=== PATIENT | female | born 1935 | race Caucasian/White ===

== ENCOUNTER 2020-10-01 07:45 | Outpatient (CLI) | payer MEDICARE, SELFPAY ==
--- NOTE | ~2020-10-01 | DEXA_ITS ---
Bone Density Report Name: Keisha Osborne Age: 85 Sex: Female Ethnicity: White Date of : 1935 Indication: osteopenia; height loss; prior fracture; postmenopausal Referring Provider: Matteo, Elba Velez Study: Bone densitometry was performed. Exam Date: October 01, 2020 Accession number: [id number] Bone Density: Region BMD T-score Z-score Classification AP Spine (L1, L2, L3) 0.951 -0.6 2.1 Normal Femoral Neck (Left) 0.465 -3.5 -1.0 Osteoporosis Total Hip (Left) 0.761 -1.5 0.7 Osteopenia Total Hip Bilateral Avg 0.763 -1.5 0.8 Osteopenia Femoral Neck (Right) 0.621 -2.1 0.4 Osteopenia Total Hip (Right) 0.764 -1.5 0.8 Osteopenia World Health Organization criteria for BMD impression classify patients as: Normal (T-score at or above -1.0), Osteopenia (T-score between -1.0 and -2.5), or Osteoporosis (T-score at or below -2.5). 10-year Fracture Risk: FRAX not reported because: Some T-score for Spine Total or Hip Total or Femoral Neck at or below -2.5 Prior hip or vertebral fracture Previous Exams: Region Exam Age BMD T-score BMD Change BMD Change Date g/cm2 vs Baseline vs Previous AP Spine(L1, L2, L3) 10/01/2020 85 0.951 -0.6 0.090(10.4%)# 0.008(0.8%) 08/16/2018 83 0.943 -0.7 0.082(9.5%)# 0.087(10.2%)* 06/20/2016 80 0.856 -1.5 -0.005(-0.6%)# -0.014(-1.6%)# 11/15/2011 76 0.869 -1.4 0.009(1.0%)# 0.009(1.0%)# 04/03/2002 66 0.861 -1.4 Total Hip(Left) 10/01/2020 85 0.761 -1.5 -0.138(-15.4%) 0.048(6.7%)* 08/16/2018 83 0.713 -1.9 -0.186(-20.7%) 0.003(0.5%) 06/20/2016 80 0.710 -1.9 -0.189(-21.1%) -0.033(-4.4%)# 11/15/2011 76 0.742 -1.6 -0.157(-17.4%) -0.157(-17.4%) 04/03/2002 66 0.899 -0.4 Total Hip(Right) 10/01/2020 85 0.764 -1.5 -0.173(-18.5%) -0.027(-3.4%)* 08/16/2018 83 0.791 -1.2 -0.146(-15.6%) 0.080(11.2%)# 06/20/2016 80 0.711 -1.9 -0.225(-24.1%) -0.026(-3.6%)# 11/15/2011 76 0.737 -1.7 -0.199(-21.3%) -0.199(-21.3%) 04/03/2002 66 0.936 0.0 *Denotes significance at 95% confidence level, LSC for AP Spine = 0.022 g/cm2, LSC for Total Hip = 0.027 g/cm2 Clinical Information Provided by Patient: Have had a previous hip or vertebral fracture Has had a low trauma fracture Has used the following medications: Vitamin D, Calcium Patient maximum height was 62 Menopause Age: 55 No regular weight bearing exercise Onset of menses at age 15 Number of children 2
--- NOTE | ~2020-10-01 | MM_ITS ---
EXAMINATION: MM screening raul BI w pati HISTORY: Screening mammogram TECHNIQUE: Craniocaudal and mediolateral oblique 3-D tomosynthesis images were obtained and synthetic 2-D images were generated. CAD analysis was submitted and interpreted. COMPARISON: 01/16/2018, 06/20/2016, 05/17/2010 BREAST PARENCHYMAL COMPOSITION: There are scattered areas of fibroglandular density. FINDINGS: Scattered benign-appearing calcifications are present. There is no evidence of suspicious m ass, calcification, or architectural distortion to suggest malignancy in either breast. There has bee n no suspicious interval change. IMPRESSION: 1. No mammographic evidence of malignancy. 2. Recommend routine screening mammography while the patient remains in good health. BI-RADS Category 2: Benign finding(s). Reviewed, dictated and finalized at location A. IMPRESSION: 1. No mammographic evidence of malignancy. 2. Recommend routine screening mammography while the patient remains in good he alth. BI-RADS Category 2: Benign finding(s).
== END 2020-10-01 07:46 | disposition home or self-care (01) ==
LOC: ANHIMG 07:54
PROVIDERS: PCP Nurse Practitioner Family; Visit Provider Nurse Practitioner Family
DX: Z12.31 Encounter for screening mammogram for malignant neoplasm of breast (principal); Z78.0 Asymptomatic menopausal state; M85.89 Other specified disorders of bone density and structure, multiple sites; M81.0 Age-related osteoporosis without current pathological fracture
CPT/HCPCS: 77063; 77067; 77080

== ENCOUNTER 2020-11-12 10:02 | Emergency (ER) | payer MEDICARE, SELFPAY ==
[2020-11-12 10:15] VITALS: BP 152/63; PULSE 84; RESP 18; TEMP 36.6; O2SAT 96
--- NOTE | 2020-11-12 10:45 | ED.SKABFB ---
HPI - Skin/Abscess/Foreign Bdy General Chief complaint: Skin/Abscess/Foreign Body Stated complaint: Spider Bite Source: patient Mode of arrival: ambulatory Limitations: no limitations History of Present Illness HPI narrative: Patient is an 85-year-old female who presents with an insect sting to her neck and left AC area x6 days. She reports feeling a sharp bite and seeing an unidentifiable insect. Patient has an area of warmth and redness to left neck with surrounding rash as well as an area of redness and warmth to left AC. Patient reports pruritic in both areas. Patient reports trying Benadryl with limited relief. She denies all other complaints at this time. MD complaint: rash and insect bite/sting Related Data Home Medications Medication Instructions Recorded Confirmed alendronate mg PO 11/12/20 aspirin [Adult Aspirin] 81 mg PO DAILY 11/12/20 11/12/20 atorvastatin 10 mg PO DAILY 11/12/20 11/12/20 cetirizine 10 mg PO DAILY 11/12/20 11/12/20 cholecalciferol (vitamin D3) 25 mcg PO DAILY 11/12/20 11/12/20 [Vitamin D3] losartan 25 mg PO DAILY 11/12/20 11/12/20 montelukast 10 mg PO DAILY 11/12/20 11/12/20 Allergies Allergy/AdvReac Type Severity Reaction Status Date / Time shellfish derived Allergy Intermediate vomiting Verified 07/11/18 06:55 Review of Systems Review of Systems: CONSTITUTIONAL: Denies fever, chills, or sweats. EYES: Denies visual changes, redness, or discharge. ENT: Denies rhinorrhea, congestion, sore throat, or otalgia. CARDIOVASCULAR: Denies chest pain, palpitations, or edema. RESPIRATORY: Denies cough or dyspnea. GASTROINTESTINAL: Denies abdominal pain, nausea, vomiting, or diarrhea. GENITOURINARY: Denies dysuria or hematuria. SKIN: Insect sting to left neck and left antecubital area MUSCULOSKELETAL: Denies back pain, joint pain, or myalgia. NEUROLOGIC: Denies headache, numbness, dizziness, or weakness. PSYCHIATRIC: Denies anxiety or depression. [facility] Past Medical History Medical History Bigeminy Cataracts, bilateral HTN (hypertension) Hypercholesterolemia Pneumonia Seasonal allergies Surgical History Surgical History H/O vertebroplasty Hx of tonsillectomy Total knee replacement status Social History Social History (Updated 11/12/20 @ 10:59 by DERRICK Whiteside) Smoking status: Never smoker Alcohol intake: never Substance use: never Comments At the time of signature, I have reviewed and agree with nursing past medical, surgical, social, and family history unless otherwise noted. Please see nursing chart for further information. There is no relevant family history pertinent to the presenting complaint. Exam Narrative: GENERAL: Well-appearing, well-nourished, and in no acute distress. HEAD: Normocephalic, atraumatic. EYES: EOMI. No redness or drainage. Conjunctiva are normal. ENT: Mucous membranes pink and moist. CHEST: No respiratory distress. Clear to auscultation. HEART: Regular rate and rhythm. EXTREMITIES: Normal range of motion. SKIN: Approximate 6 x 3 cm area of erythema and warmth to left neck, small area of erythema and warmth to left AC with surrounding macular rash. NEURO: No focal deficits. Alert and oriented x3. Gait steady. PSYCH: Normal affect. No signs of depression or anxiety. Course Vital Signs Vital signs: Vital Signs Temperature 36.6 C 11/12/20 10:15 Pulse Rate 84 11/12/20 10:15 Respiratory Rate 18 11/12/20 10:15 Blood Pressure 152/63 H 11/12/20 10:15 Pulse Oximetry 96 11/12/20 10:15 Temperature 36.6 C 11/12/20 10:15 Pulse Rate 84 11/12/20 10:15 Respiratory Rate 18 11/12/20 10:15 Blood Pressure 152/63 H 11/12/20 10:15 Pulse Oximetry 96 11/12/20 10:15 Reviewed-patient is informed that they may have pre-hypertension or hypertension based on a blood pressure reading. I recommend the patient call th
== END 2020-11-12 10:55 | disposition home or self-care (01) ==
PROVIDERS: Emergency Provider Nurse Practitioner; PCP Nurse Practitioner Family
DX: L03.221 Cellulitis of neck (principal); S10.96XA Insect bite of unspecified part of neck, initial encounter; W57.XXXA Bitten or stung by nonvenomous insect and other nonvenomous arthropods, initial encounter; H26.9 Unspecified cataract; I10 Essential (primary) hypertension; E78.00 Pure hypercholesterolemia, unspecified; Z96.659 Presence of unspecified artificial knee joint
CPT/HCPCS: 99213; G0463

== ENCOUNTER 2022-01-09 08:33 | Outpatient (CLI) | payer MEDICARE, SELFPAY ==
--- NOTE | ~2022-01-09 | MM_ITS ---
EXAMINATION: MM screening raul BI w pati HISTORY: Screening mammogram TECHNIQUE: Craniocaudal and mediolateral oblique 3-D tomosynthesis images were obtained and synthetic 2-D images were generated. CAD analysis was submitted and interpreted. COMPARISON: 10/01/2020, 01/16/2018, 06/20/2016 BREAST PARENCHYMAL COMPOSITION: The breasts are heterogeneously dense, which may obscure small masses . FINDINGS: Scattered benign-appearing calcifications are present. No suspicious mass, calcification, o r architectural distortion are identified in either breast to suggest malignancy. There has been no s uspicious interval change. IMPRESSION: 1. No mammographic evidence of malignancy. 2. Recommend routine screening mammography while the patient remains in good health. BI-RADS Category 2: Benign finding(s). Reviewed, dictated and finalized at location A. GER CALL IMPRESSION: 1. No mammographic evidence of malignancy. 2. Recommend routine screening mammography while the patient remains in good he alth. BI-RADS Category 2: Benign finding(s).
== END 2022-01-09 08:34 | disposition home or self-care (01) ==
LOC: ANHIMG 08:35
PROVIDERS: PCP Nurse Practitioner Family; Visit Provider Nurse Practitioner Family
DX: Z12.31 Encounter for screening mammogram for malignant neoplasm of breast (principal)
CPT/HCPCS: 77063; 77067

== ENCOUNTER 2022-09-06 13:53 | Emergency (ER) | payer MEDICARE, SELFPAY ==
[2022-09-06 14:15] VITALS: BP 150/60; PULSE 83; RESP 16; TEMP 36.6; O2SAT 96
--- NOTE | 2022-09-06 14:26 | ED.SKABFB ---
HPI - Skin/Abscess/Foreign Bdy General Chief complaint: Skin/Abscess/Foreign Body Stated complaint: facial irritation and swelling Time Seen by Provider: 09/06/22 14:26 Source: patient and RN notes reviewed Mode of arrival: ambulatory Limitations: no limitations History of Present Illness HPI narrative: 87-year-old female presents with concern for itching and swelling to her face. She reports she was cleaning out her garage yesterday when she felt she might have got some bug bites on her cheeks. She reports they have since then becomes swollen, itchy, red. Denies pain. She denies swollen lips, swollen tongue, trouble breathing MD complaint: rash Related Data Home Medications Medication Instructions Recorded Confirmed alendronate 70 mg tablet 70 mg PO DIRECTED 11/12/20 09/06/22 aspirin 81 mg tablet 81 mg PO DAILY 11/12/20 09/06/22 atorvastatin 10 mg tablet 10 mg PO DAILY 11/12/20 09/06/22 cholecalciferol (vitamin D3) 25 25 mcg PO DAILY 11/12/20 09/06/22 mcg (1,000 unit) capsule (Vitamin D3) losartan 25 mg tablet 25 mg PO DAILY 11/12/20 09/06/22 montelukast 10 mg tablet 10 mg PO DAILY 11/12/20 09/06/22 fluticasone propionate 50 50 mcg intranasal DIRECTED 09/06/22 09/06/22 mcg/actuation nasal spray,suspension oxybutynin chloride 5 mg 5 mg PO DIRECTED 09/06/22 09/06/22 tablet,extended release 24 hr Allergies Allergy/AdvReac Type Severity Reaction Status Date / Time shellfish derived Allergy Intermediate vomiting Verified 05/02/22 09:35 Review of Systems Review of Systems: CONSTITUTIONAL: Denies malaise, chills, sweats, or fever. EYES: Denies redness, or discharge. ENT: Denies rhinorrhea, congestion, swollen lips, swollen tongue CARDIOVASCULAR: Denies chest pain, palpitations, or edema. RESPIRATORY: Denies cough or dyspnea. GASTROINTESTINAL: Denies abdominal pain, nausea, vomiting SKIN: Reports itchy rash on her face MUSCULOSKELETAL: Denies joint pain or myalgia. NEUROLOGIC: Denies headache. All systems reviewed & are unremarkable except as noted in HPI and below PMFSH Past Medical History Medical History Bigeminy Cataracts, bilateral HTN (hypertension) Hypercholesterolemia Pneumonia Seasonal allergies Surgical History Surgical History H/O vertebroplasty Hx of tonsillectomy Total knee replacement status Social History Social History Smoking status: Never smoker Alcohol intake: never Substance use: never Lack of Transportation: No Lack of Food: Never True Current Housing: I Have Housing Concerned About Future Housing: No Difficulty Paying Gas/Electric Bills: No Difficulty Paying for Meds: No Currently Unemployed: No Education: High School Diploma/GED Difficulty w/ Childcare or Family Care: No Gender identity (if verbalized by the patient): Female Comments At time of signature, agree with nursing past medical, surgical, social and family history. There is no relevant family history pertinent to the presenting complaint Exam Narrative: GENERAL: Well-appearing, well-nourished, and in no acute distress. HEAD: Normocephalic, atraumatic. EYES: PERRLA, conjunctivae clear, and EOMI. ENT: Mucous membranes moist. Oropharynx without edema, erythema or lesions. NECK: Supple. No lymphadenopathy CHEST: Clear to auscultation. No respiratory distress. HEART: Regular rate and rhythm. SKIN: Warm, dry. bilateral cheeks erythematous without induration, warm, slightly raised NEURO: Alert and oriented x3. PSYCH: Normal mood and affect Course Course Emergency Course: Patient is aware of diagnosis, understands and agrees to treatment plan. Anticipatory guidance given. Patient agrees to follow-up as directed and is aware of reasons to seek care at the emergency department. Portions of this
== END 2022-09-06 14:43 | disposition home or self-care (01) ==
PROVIDERS: Emergency Provider Nurse Practitioner; PCP Nurse Practitioner Family
DX: T78.40XA Allergy, unspecified, initial encounter (principal); H26.9 Unspecified cataract; I10 Essential (primary) hypertension; E78.00 Pure hypercholesterolemia, unspecified; R00.8 Other abnormalities of heart beat; Z79.82 Long term (current) use of aspirin
CPT/HCPCS: 99213; G0463

== ENCOUNTER 2023-03-26 14:14 | Outpatient (CLI) | payer MEDICARE, SELFPAY ==
--- NOTE | ~2023-03-26 | MM_ITS ---
EXAMINATION: MM screening raul BI w pati HISTORY: Screening mammogram TECHNIQUE: Craniocaudal and mediolateral oblique 3-D tomosynthesis images were obtained and synthetic 2-D images were generated. CAD analysis was submitted and interpreted. COMPARISON: 01/09/2022, 10/01/2020, 01/16/2018 BREAST PARENCHYMAL COMPOSITION: The breasts are heterogeneously dense, which may obscure small masses . FINDINGS: Scattered benign-appearing calcifications are present. No suspicious mass, calcification, o r architectural distortion are identified in either breast to suggest malignancy. There has been no s uspicious interval change. IMPRESSION: 1. No mammographic evidence of malignancy. 2. Recommend routine screening mammography while the patient remains in good health. BI-RADS Category 2: Benign finding(s). Reviewed, dictated and finalized at location A. [employer] IMPRESSION: 1. No mammographic evidence of malignancy. 2. Recommend routine screening mammography while the patient remains in good he alth. BI-RADS Category 2: Benign finding(s).
== END 2023-03-26 14:15 | disposition home or self-care (01) ==
LOC: ANHIMG 14:17
PROVIDERS: PCP Nurse Practitioner Family; Visit Provider Nurse Practitioner Family
DX: Z12.31 Encounter for screening mammogram for malignant neoplasm of breast (principal)
CPT/HCPCS: 77063; 77067

== ENCOUNTER 2023-04-28 09:16 | Emergency (ER) | payer MEDICARE, SELFPAY ==
--- NOTE | ~2023-04-28 | XR_ITS ---
EXAMINATION: XR chest 2V DATE: 04/28/2023 10:11 INDICATION: Cough and congestion TECHNIQUE: PA and lateral views of the chest were obtained. COMPARISON: Chest radiograph dated 05/07/17 FINDINGS: No interval change in a bandlike discoid atelectasis/scarring at the bilateral lower lung zones. No n ew airspace opacities, pulmonary edema, pleural effusion or pneumothorax. Heart size is normal. A few chronic thoracic compression fractures with vertebroplasty at what is likely T11. IMPRESSION: 1. 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 No acute ca rdiopulmonary disease. Reviewed, dictated and finalized at location A. IMPRESSION: 1. Stable appearance of chronic discoid atelectasis/scarring at the bilateral l boy bases. No acute cardiopulmonary disease.
--- NOTE | 2023-04-28 09:18 | ED.URI ---
HPI - URI/Sore Throat General Chief Complaint: Upper Respiratory Infection Stated Complaint: Congestion,Bilateral Ear Irritation, cough Time Seen by Provider: 04/28/23 09:35 Source: patient Mode of arrival: ambulatory Limitations: no limitations History of Present Illness HPI Narrative: Keisha is an 87-year-old female patient presenting to the clinic today with complaints of cough, congestion, and bilateral ear pain x1 day. She reports no known fever or chills. States her symptoms just started yesterday. Feel as though her ears are clogging up. She denies any shortness of breath or chest pain MD elicited complaint: cough and nasal congestion Related Data Home Medications Medication Instructions Recorded Confirmed alendronate 70 mg tablet 70 mg PO DIRECTED 11/12/20 11/01/22 aspirin 81 mg tablet 81 mg PO DAILY 11/12/20 11/01/22 atorvastatin 10 mg tablet 10 mg PO DAILY 11/12/20 11/01/22 losartan 25 mg tablet 25 mg PO DAILY 11/12/20 11/01/22 montelukast 10 mg tablet 10 mg PO DAILY 11/12/20 11/01/22 fluticasone propionate 50 50 mcg intranasal DIRECTED 09/06/22 11/01/22 mcg/actuation nasal spray,suspension oxybutynin chloride 5 mg 5 mg PO DIRECTED 09/06/22 11/01/22 tablet,extended release 24 hr multivit with minerals-iron 18 tablet PO 04/28/23 mg-folic ac 400 mcg-vit K 25 mcg tablet (Adults Multivitamin) Allergies Allergy/AdvReac Type Severity Reaction Status Date / Time shellfish derived AdvReac Intermediate vomiting Verified 04/28/23 09:32 Review of Systems Review of Systems: Pertinent positives per HPI. Patient denies any fever, chills, rash, headache, visual changes, dizziness, shortness of breath, chest pain, palpitations, nausea, vomiting, diarrhea, constipation, abdominal pain, or any urinary issues. [facility] Past Medical History Medical History Bigeminy Cataracts, bilateral HTN (hypertension) Hypercholesterolemia Pneumonia Seasonal allergies Surgical History Surgical History H/O vertebroplasty Hx of tonsillectomy Total knee replacement status Social History Social History Smoking status: Never smoker Alcohol intake: never Substance use: never Lack of Transportation: No Lack of Food: Never True Current Housing: I Have Housing Concerned About Future Housing: No Difficulty Paying Gas/Electric Bills: No Difficulty Paying for Meds: No Currently Unemployed: No Education: High School Diploma/GED Difficulty w/ Childcare or Family Care: No Gender identity (if verbalized by the patient): Female Comments At the time of my signature, I reviewed and agree with the nursing past medical, surgical, social, and family history. There is no relevant family history pertinent to the patient complaint. Exam Narrative: General: Well-developed, well nourished, in no apparent distress Head: Normocephalic, atraumatic Eyes: Pupils equally round and reactive to light bilaterally, EOM intact, sclera and conjunctive clear, no discharge, lids normal Ears: TMs intact and congested, ear canals clear, no drainage, grossly hearing normal. Nose: Nares patent, clear nasal discharge, no inflammation, no sinus tenderness. Mouth: Oral pharynx without lesions or masses, good dentition, MMM. Neck: Supple, trachea midline, no enlargement of anterior or posterior cervical nodes, no thyroid masses or goiter palpable. Cardio: Regular rate and rhythm, s1 and s2 normal, no murmur appreciated. Resp: Lung sounds congested with crackles in the bases, no wheezing or rubs Course Course Emergency Course: Portions of this record may have been created with voice recognition software. Level of Care: Express Care Visit Vital Signs Vital signs: Vital signs reviewed MDM - URI/Sore Throat MDM Narrative Medi
[2023-04-28 09:25] VITALS: BP 150/68; PULSE 87; RESP 18; TEMP 36.6; O2SAT 94
== END 2023-04-28 10:27 | disposition home or self-care (01) ==
PROVIDERS: Emergency Provider Nurse Practitioner Family; PCP Nurse Practitioner Family
DX: J06.9 Acute upper respiratory infection, unspecified (principal); I10 Essential (primary) hypertension; Z20.822 Contact with and (suspected) exposure to COVID-19
CPT/HCPCS: 71046; 87426; 99213; G0463

== ENCOUNTER 2023-10-06 09:43 | Outpatient (CLI) | payer MEDICARE, SELFPAY ==
--- NOTE | ~2023-10-06 | DEXA_ITS ---
Bone Density Report Name: NEEL VAZQUEZ Age: 88 Sex: Female Ethnicity: White Date of : 1935 Indication: osteopenia; height loss; prior fracture; Referring Provider: PAOLO HERMOSILLO Study: Bone densitometry was performed. Exam Date: October 06, 2023 Accession number: [id number] Bone Density: Region BMD T-score Z-score Classification AP Spine(L1, L2, L3) 0.970 -0.4 2.4 Normal Femoral Neck (Left) 0.499 -3.2 -0.6 Osteoporosis Total Hip (Left) 0.765 -1.5 0.9 Osteopenia Femoral Neck (Right) 0.619 -2.1 0.4 Osteopenia Total Hip (Right) 0.846 -0.8 1.5 Normal Total Hip Mean 0.805 -1.2 1.2 Osteopenia World Health Organization criteria for BMD impression classify patients as: Normal (T-score at or above -1.0), Osteopenia (T-score between -1.0 and -2.5), or Osteoporosis (T-score at or below -2.5). 10-year Fracture Risk: FRAX not reported because: Some T-score for Spine Total or Hip Total or Femoral Neck at or below -2.5 Prior hip or vertebral fracture Previous Exams: Region Exam Age BMD T-score BMD Change BMD Change Date g/cm2 vs Baseline vs Previous AP Spine (L1-L3) 10/06/2023 88 0.970 -0.4 0.114 (13.3%)* 0.019 (2.0%) 10/01/2020 85 0.951 -0.6 0.095 (11.1%)* 0.008 (0.8%) 08/16/2018 83 0.943 -0.7 0.087 (10.2%)* 0.087 (10.2%)* 06/20/2016 80 0.856 -1.5 Total Hip(Left) 10/06/2023 88 0.765 -1.5 0.055 (7.8%)* 0.004 (0.5%) 10/01/2020 85 0.761 -1.5 0.051 (7.2%)* 0.048 (6.7%)* 08/16/2018 83 0.713 -1.9 0.003 (0.5%) 0.003 (0.5%) 06/20/2016 80 0.710 -1.9 Total Hip(Right) 10/06/2023 88 0.846 -0.8 0.135 (18.9%)* 0.082 (10.8%)# 10/01/2020 85 0.764 -1.5 0.052 (7.4%)# -0.027 (-3.4%) 08/16/2018 83 0.791 -1.2 0.080 (11.2%)# 0.080 (11.2%)# 06/20/2016 80 0.711 -1.9 *Denotes significance at 95% confidence level, LSC for AP Spine = 0.022 g/cm2, LSC for Total Hip = 0.027 g/cm2 # Denotes dissimilar scan types or analysis methods Clinical Information Provided by Patient: Have had a previous hip or vertebral fracture Has had a low trauma fracture Has used the following medications: Vitamin D, multiviytam,in Patient maximum height was 62 Menopause Age: 55 No regular weight bearing exercise Drinks caffeinated beverages Onset of menses at age 17 Number of children 2 Impression: The patient has established osteoporosis, based on the Left Femoral Neck T-score and the existence of a pr
== END 2023-10-06 09:44 | disposition home or self-care (01) ==
LOC: ANHIMG 09:44
PROVIDERS: PCP Nurse Practitioner Family; Visit Provider Nurse Practitioner Family
DX: M81.0 Age-related osteoporosis without current pathological fracture (principal); M85.852 Other specified disorders of bone density and structure, left thigh; M85.851 Other specified disorders of bone density and structure, right thigh
CPT/HCPCS: 77080

== ENCOUNTER 2024-10-30 10:02 | Emergency (ER) | payer MEDICARE, SELFPAY ==
--- NOTE | ~2024-10-30 | XR_ITS ---
EXAMINATION: XR chest 2V, 10/30/2024 10:53 CDT HISTORY: rales on expiration COMPARISON: No comparisons available. Technique: 2 views obtained. Findings: Small basilar infiltrates and basilar areas of atelectasis, findings most marked in the right lower lobe. COPD changes are noted. No pneumothorax. Heart is normal size. Mediastinal and hilar contours are within normal limits. Kyphoplasty changes noted. Impression: Early bilateral pneumonia Reviewed, dictated and finalized at location A. Impression: Early bilateral pneumonia
[2024-10-30 10:17] VITALS: BP 160/68; PULSE 68; RESP 18; TEMP 36.4; O2SAT 98
--- NOTE | 2024-10-30 10:30 | ED_ITS ---
HPI - Dizziness General Chief Complaint: Dizziness Stated Complaint: Dizziness Time Seen by Provider: 10/30/24 10:30 Source: patient Mode of arrival: ambulatory Limitations: no limitations History of Present Illness HPI Narrative: 89 yo F presents with c/o dizziness when standing. Lasts a few seconds and is better after taking a few steps. Started this AM. Was laying in bed and noticed dizziness. Was able to get up out of bed and use the bathroom, fed her cats and then drank a carnation breakfast drink and orange juice. After eating did not help with dizziness called her doctor for appt and was told to come here. No URI symptoms. NO CP or SOB. Currently not dizzy sitting in exam room. Ambulatory with steady gait. Pt states about a week ago she had her prescription sent to a new pharmacy and instead of taking 2 losartan, she is only taking 1 pill a day. Did not call her PCP about medication change. All systems reviewed and negative except as noted above. Related Data Home Medications ?Medication ?Instructions ?Recorded ?Confirmed ?Last Taken ?Type aspirin 81 mg tablet 81 mg PO DAILY 11/12/2005/14 Unknown History multivit with minerals-iron 18 tablet PO 04/28/2305/14 Unknown History mg-folic ac 400 mcg-vit K 25 mcg tablet (Adults Multivitamin) cholecalciferol (vitamin D3) 25 25 mcg PO DAILY 06/02/24 Unknown History mcg (1,000 unit) capsule Allergies Allergy/AdvReac Type Severity Reaction Status Date / Time shellfish derived AdvReac Intermediate vomiting Verified 10/30/24 10:22 [facility] Past Medical History Medical History Osteoporosis Overactive bladder Chronic kidney disease, stage 3b Pneumonia HTN (hypertension) Hypercholesterolemia Bigeminy Seasonal allergies Cataracts, bilateral Surgical History Surgical History H/O vertebroplasty Total knee replacement status Hx of tonsillectomy Social History Social History Social History: 05/20/24 very confident with medical forms Smoking status: Never smoker Alcohol intake: never Substance use: never Do You Feel Safe in your Home?: Yes Lack of Transportation: No Lack of Food: Never True Current Housing: I Have Housing Concerned About Future Housing: No Difficulty Paying Gas/Electric Bills: No Difficulty Paying for Meds: No Currently Unemployed: No Education: High School Diploma/GED Difficulty w/ Childcare or Family Care: No Living arrangements: alone Additional living arrangements comments: Occupation/Education: retired Gender identity (if verbalized by the patient): Female Spiritual care concerns: No Agree to blood products: Yes Comments At time of signature, agree with nursing past medical, surgical, social and family history. There is no relevant family history pertinent to the presenting complaint. Exam Narrative: GENERAL: This is a well-nourished, well-developed patient, in no apparent distress. HEAD: normocephalic, atraumatic. EYES: PERRL. Sclera clear/white. Vision is grossly intact. extraocular motions intact EARS: External ears normal, auditory canals clear and without drainage, TMs normal without perforation. Hearing grossly intact. NOSE: External nose normal with no obvious nasal discharge, nares without redness, no rhinorrhea. THROAT: Mucous membranes moist, posterior pharynx clear. NECK: Neck supple, non-tender without lymphadenopathy, masses or thyromegaly. CARDIOVASCULAR: Regular rate and rhythm without murmurs, gallops, or rubs. RESPIRATORY: Crackles and rales to bilateral lower lung delaney. Breath sounds equal bilaterally. No wheezes, rales, or rhonchi. SKIN: warm, Dry, intact with no suspicious lesions or rash, good texture and turgor. NEURO: awake, alert, and oriented to person, place and time. There were no obvious focal neurologic abnormalities. no facial droop. No arm drift. EXTREMITIES: No joint tenderness, effusion, or edema noted. Course Course Level of Care: Express Care Visit Vital Signs Vital signs: Vital Signs Temperature 36.4 C L 10/30/24 10:17 Pulse Rate 68 10/30/24 10:17 Respiratory Rate 18 10/30/24 10:17 Blood Pressure 160/68 H 10/30/24 10:17 Pulse Oximetry 98 10/30/24 10:17 Oxygen Delivery Room Air 10/30/24 10:17 Temperature 36.4 C L 10/30/24 10:17 Pulse Rate 70 10/30/24 10:52 Respiratory Rate 18 10/30/24 10:17 Blood Pressure 146/70 H 10/30/24 10:52 Pulse Oximetry 98 10/30/24 10:17 Oxygen Delivery Room Air 10/30/24 10:17 Reviewed MDM - Dizziness MDM Narrative Medical decision making narrative: chest x-ray shows bilateral early pneumonia. Will treat patient with Augmentin and azithromycin. Vital signs stable. Okay for outpatient therapy. Did offer to transfer patient to ER for further evaluation with labs but she did not feel was necessary. Did recommend the patient discuss medication change with her primary care physician. Called office and has appointment for her tomorrow. Patient is well-appearing, nontoxic. No shortness of breath or chest pain. Will go to the ER for any worsening of symptoms. Differential Diagnosis Differential diagnosis: Likely benign paroxysmal positional vertigo, orthostatic hypotension and other (dehydration) Lab Data Labs: Lab Results 10/30/24 Range/Units 10:45 POC Capillary Glucose 124 H (65-105) mg/dl Discharge Plan Discharge Clinical Impression: Pneumonia Patient Disposition: Home Condition: Stable Instructions: Antibiotic Form, Pneumonia (ED) Additional Instructions: Your chest x-ray showed bilateral pneumonia. Your blood pressure was elevated today. Take antibiotic as prescribed until gone. Schedule a follow up appointment with your doctor. If you have fever, chest pain, shortness of breath or worsening of your dizziness go to the ER. Patient Language: Honduran Prescriptions: New doxycycline hyclate 100 mg capsule 100 mg PO BID 7 Days Qty: 14 0RF amoxicillin-pot clavulanate 875-125 mg tablet 1 tablet PO Q12H 7 Days Qty: 14 0RF No Action Adult Aspirin 81 mg Tablet 81 mg PO DAILY Adults Multivitamin 18 mg iron-400 mcg-25 mcg Tablet PO cholecalciferol (vitamin D3) 25 mcg (1,000 unit) capsule 25 mcg PO DAILY fluticasone propionate 50 mcg/actuation spray,suspension 50 mcg INTRANASAL BID Qty: 68 1RF Januvia 25 mg tablet 25 mg PO DAILY Qty: 90 1RF oxybutynin chloride 5 mg tablet extended release 24hr 5 mg PO DAILY Qty: 90 3RF montelukast 10 mg tablet 10 mg PO DAILY Qty: 90 3RF atorvastatin 10 mg tablet 10 mg PO QHS Qty: 90 3RF losartan 50 mg tablet 50 mg PO DAILY Qty: 90 1RF Follow-up/Referrals: [place], 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
--- OUTSIDE RECORDS SUMMARY | 2024-10-30 10:38 | XMS_ITS | Clinical Summary ---
Author Organization [facility] Address [address], [facility] [address] [place] [address] Phone Care Team Providers Care Forming Department Supervisor Name Role Phone Elba Felipe HIDE MILL WORKER, JIMBO Primary Care Pro vider Allergies Active Allergy Reactions Criticality Noted Date Comments Shellfish Allergy Nausea,Vomiting High 06/10/2018 Medications losartan (COZAAR) 25 MG Tablet 05/03/2018 Active oxybutynin (DITROPAN-XL) 5 MG TABLET SR 24 HR 02/25/2018 Active montelukast (SINGULAIR) 10 MG Tablet 05/08/2018 Active fluticasone (FLONASE) 50 MCG/ACT Suspension 05/29/2018 Active cetirizine (ZYRTEC ALLERGY) 10 MG Tablet Take 10 mg by mouth daily. Active Multiple Vitamins-Mineral s (MULTIVITAMIN PO) Take by mouth. 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 Gender Identity Not on file Sexual Orientation Not on file 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 Not on file Not on file Not on file Last Filed Vital Signs Vital Sign Reading Time Taken Comments Blood Pressure 140/78 06/10/2018 1:17 PM CDT Pulse 89 06/10/2018 1:17 PM CDT Temperature - - Respiratory Rate - - Oxygen Saturation 94% 06/10/2018 1:17 PM CDT Inhaled Oxygen Concentration - - Weight 63.2 kg (139 lb 6.4 oz) 06/10/2018 1:17 P M CDT Height 152.4 cm (5') 06/10/2018 1:17 PM CDT Body Mass Index 27.22 06/10/2018 1:17 PM CDT Plan of Treatment Health Maintenance Due Date Last Done Comments Hepatitis C Virus (HCV) Screening 1935 TdaP Immunization 1935 Zoster Immunization (2 of 3) 08/17/2010 06/22/2010 Respiratory Syncytial Virus (RSV) Immunization (Adult) (1 - 1-dose 75+ series) 2012 Influenza Immunization (#1) 10/13/202411/14, 12/07/2017, 11/06/2016, Additional history exists SARS-COV-2 Immunization (2024- season) 2024 01/24/2021, 04/23/2020, 03/26/2020 Pneumococcal Immunization (50+ years) Completed 11/06/2016, 02/22/2016, 09/05/2010 Pneumococcal Immunization Combined Discontinued 11/06/2016, 02/22/2016, 09/05/2010 Hepatitis B Immunization Aged Out No longer eligible based on patient's age to complete this topic Human Papillomavirus (HPV) Immunization Aged Out No longer eligible based on patient's age to complete this topic Meningococcal Immunization (ACWY) Aged Out No longer eligible based on patient's age to complete this topic Rotavirus Immunization Aged Out No lo nger eligible based on patient's age to complete this topic Insurance MEDICARE [facility] Care Teams Forming Department Supervisor Relationship Specialty Start Date End Date Elba Felipe APRN, LEATHER ROLLER [address] [place] [address] PCP - General Certified Nurse Practitioner 04/10/18
--- OUTSIDE RECORDS SUMMARY | 2024-10-30 10:38 | XMS_ITS | Encounter Summary ---
Author Organization [facility] Address [address] [place] [address] Care Team Providers Care Area Coordinator Name Role Phone Sofia Osorio MD Primary Care Provider [phone] Encounter Details Date Type Department Care Team (Late st Contact Info) Description 08/22/2024 Lab Requisition [facility] - DermPath Lab [address] [place] [phone] Kin Muñoz MD [address] [place] [address] Social History Tobacco Use Types Packs/Day Years Used Date Smoking Tobacco: Never Smokeless Tobacco: Never Alcohol Use Standard Drinks/Week Comments No 0 (1 standard drink = 0.6 oz pur e alcohol) Comments Unknown Sex and Gender Information Value Date Recorded Sex Assigned at Not on file 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 Gender Identity Not on file Sexual Orientation Not on file documented as of this encounter Plan of Treatment Not on file documented as of this encounter Procedures Procedure Name Priority Date/Time Associated Diagnosis Comments DERMATOPATHOLOGY Routine 08/21/2024 12:0 0 AM CDT documented in this encounter Results * DERMATOPATHOLOGY (08/21/2024 12:00 AM CDT) Case Report Dermatopathology Report Case: [id number] Authorizing Provider: Kin Muñoz MD Collected: 08/21/2024 12:00 AM Ordering Location: [facility] - Received: 08/22/2024 08:02 AM DermPath Lab Pathologist: Edna Romo MD Specimen: Skin, right upper forehead 2:15 PM CDT DERMATOPATHOLOGY LABORATORY Final Diagnosis Specimen A. SKIN, right upper forehead: BASAL CELL CARCINOMA (C44.319) PRESENT AT MARGIN DERMAL SCAR (L90.5) PRESENT AT MARGIN 2:15 PM CDT DERMATOPATHOLOGY LABORATORY at 1415 CDT Clinical History Bx Proven BCC Prior biopsy [id number] 2:15 PM CDT DERMATOPATHOLOGY LABORATORY Gross Description Specimen A: Received is one formalin filled container labeled with the patient's name and designated right upper forehead. The specimen consists of a curettage 2 pieces 9x4x1,5x3x1 mm. Jar 0. 2:15 PM CDT DERMATOPATHOLOGY LABORATORY Microscopic Description Specimen A. SKIN, right upper forehead: Within the dermis there are aggregates of basaloid cells with a high nuclear to cytoplasmic ratio and peripheral palisading. There are fibroblasts and collagen bundles oriented parallel to the skin surface with elongated blood vessels, some of which are oriented perpendicular to the skin surface. Both the basal cell carcinoma and the scar are present at the margin of the specimen. 2:15 PM CDT DERMATOPATHOLOGY LABORATORY Disclaimer An external and internal positive and negative controls are appropriate for the histochemical, immunohistochemical and immunofluorescence stain(s) in this case (if any), except where stated explicitly. The performance characteristics of the stain(s) cited in this report were developed and its performance characteristic determined by the Dermatopathology Laboratory at [facility], directed by Dr. Hilario Bey. These tests need not be, and therefore are not, approved by the [place] Food and Drug Administration. The tests are used for clinical purposes. Billing Codes Specimen Charges Stain Charges 45660 1 2:15 PM CDT DERMATOPATHOLOGY LABORATORY Embedded Images 2:15 PM CDT DERMATOPATHOLOGY LABORATORY Pathology/Cytolog y TISSUE SPECIMEN FROM SKIN / Unknown 08/21/2024 08/22/2024 8:02 AM CDT Kin Muñoz MD LAB - PATHOLOGY/CYTOLOGY ORDERAB LES Final Result DERMATOPATHOLOGY LABORATORY [facility] - Department of Dermatology [facility] [address] [place] [address], [address] [phone] documented in this encounter Visit Diagnoses Not on filedocumented in this encounter Care Teams Area Coordinator Relationship Specialty Start Date End Date Sofia Osorio MD [address] [place] [phone] PCP - General 08/08/12 documented as of this encounter
--- OUTSIDE RECORDS SUMMARY | 2024-10-30 10:38 | XMS_ITS | Clinical Summary ---
Author Organization [facility] Address [address] [facility] [place] [address] Care Team Providers Care Freight Car Inspector Name Role Phone Sofia Osorio MD Primary Care Provider [phone] Source Comments [facility],non-owned Affiliates and Associated Physician Practices is amultiple site organization consisting of ambulatory clinics and hospital sitesin [place], [place], [place] and [place]. This disclosure is being madepursuant to the Care Everywhere program and may not contain all information available regarding this patient. Last updated 17.[facility] Active Problems Problem Noted Date Diagnosed Date Stable burst fracture of t11 -T12 vertebra, initial encounter for closed fracture 08/09/2012 Encounters Date Type Department Care Team Description 08/22/2024 Lab Requisition [facility] - DermPath Lab [facility] [place] [address] Kin Muñoz MD 08/08/2024 Lab Requisition [facility] - DermPath Lab [facility] [place] [address] Kin Muñoz MD from Last 3 Months Social History Tobacco Use Types Packs/Day Years Used Date Smoking Tobacco: Never Smokeless Tobacco: Never Alcohol Use Standard Drinks/Week Comments No 0 (1 standard drink = 0.6 oz pur e alcohol) Comments Unknown Sex and Gender Information Value Date Recorded Sex Assigned at Not on file 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 Gender Identity Not on file Sexual Orientation Not on file Last Filed Vital Signs Vital Sign Reading Time Taken Comments Blood Pressure 144/82 05/05/2013 10:15 AM CDT Pulse 79 08/09/2012 10:15 AM CDT Temperature 36.4 C (97.6 F) 08/09/2012 10:15 AM CDT Respiratory Rate 18 08/09/2012 10:15 AM CDT Oxygen Saturation 96% 08/09/2012 10:15 AM CDT Inhaled Oxygen Concentration - - Weight 70.3 kg (155 lb) 05/05/2013 10:15 AM CDT Height 154.9 cm (5' 1) 05/05/2013 10:15 AM CDT Body Mass Index 29.29 05/05/2013 10:15 AM CDT Plan of Treatment Health Maintenance Due Date Last Done Comments BONE DENSITY TESTING 1935 DTAP/TDAP/TD VACCINES (1 - Tdap) 1956 PNEUMOCOCCAL VACCINE 50+ (1 of 1 - PCV) 08/03/1987 ZOSTER VACCINE (1 of 2) 08/03/1987 Respiratory Syncytial Virus (RSV) Vaccine Pt: or over 60 yrs (1 - 1-dose 75+ series) 2012 DEPRESSION SCREENING 02/13/2024 MEDICARE AWV CALENDAR YEAR 2024 COVID-19 VACCINE (1 - 2023-2 5 season) 2024 INFLUENZA VACCINE (#1) 2024 HEPATITIS B VACCINE Aged Out No longe r eligible based on patient's age to complete this topic HIB VACCINE Aged Out No longer eligi ble based on patient's age to complete this topic HPV VACCINE Aged Out No longer eligi ble based on patient's age to complete this topic MENINGOCOCCAL (Group B) VACC INE SHARED DECISION-MAKING Aged Out No longer eligibl e based on patient's age to complete this topic MENINGOCOCCAL GROUPS A/C/Y/W VACCINE Aged Out No longer eligible b ased on patient's age to complete this topic Procedures Procedure Name Priority Date/Time Associated Diagnosis Comments DERMATOPATHOLOGY Routine 08/21/2024 12:0 0 AM CDT DERMATOPATHOLOGY Routine 08/06/2024 12:0 0 AM CDT from Last 3 Months Results * DERMATOPATHOLOGY (08/21/2024 12:00 AM CDT) Only the most recent of2 resultswithin the time period is included. Case Report Dermatopathology Report Case: [id number] Authorizing Provider: Kin Muñoz MD Collected: 08/21/2024 12:00 AM Ordering Location: [facility] - Received: 08/22/2024 08:02 AM DermPath Lab Pathologist: Edna Romo MD Specimen: Skin, right upper forehead 2:15 PM CDT DERMATOPATHOLOGY LABORATORY Final Diagnosis Specimen A. SKIN, right upper forehead: BASAL CELL CARCINOMA (C44.319) PRESENT AT MARGIN DERMAL SCAR (L90.5) PRESENT AT MARGIN 2:15 PM CDT DERMATOPATHOLOGY LABORATORY at 1415 CDT Clinical History Bx Proven BCC Prior biopsy [id number] 2:15 PM CDT DERMATOPATHOLOGY LABORATORY Gross Description [...] characteristic determined by the Dermatopathology Laboratory at [facility], directed by Dr. Hilario Bey. These tests need not be, and therefore are not, approved by the [place] Food and Drug Administration. The tests are used for clinical purposes. Billing Codes Specimen Charges Stain Charges [id number] 1 2:15 PM CDT DERMATOPATHOLOGY LABORATORY Embedded Images 07/14/202 5 2:15 PM CDT DERMATOPATHOLOGY LABORATORY Pathology/Cytolog y TISSUE SPECIMEN FROM SKIN / Unknown 08/21/2024 08/22/2024 8:02 AM CDT Kin Muñoz MD LAB - PATHOLOGY/CYTOLOGY ORDERAB LES Final Result DERMATOPATHOLOGY LABORATORY [facility] - Department of Dermatology [address], [address] [phone] from Last 3 Months Insurance MEDICARE [facility] MEDICARE ADV HMO & PPO Care Teams Freight Car Inspector Relationship Specialty Start Date End Date Sofia Osorio MD [address] [place] [phone] PCP - General 08/08/12
--- OUTSIDE RECORDS SUMMARY | 2024-10-30 10:38 | XMS_ITS | Encounter Summary ---
Author Organization [facility] Health Address [address] [place] [address] Care Team Providers Care Hedge Fund Accountant Name Role Phone Sofia Osorio MD Primary Care Provider [phone] Encounter Details Date Type Department Care Team (Late st Contact Info) Description 08/08/2024 Lab Requisition [facility] - DermPath Lab [address] [place] [phone] Kin Muñoz MD [address] [place] [address] Social History Tobacco Use Types Packs/Day Years Used Date Smoking Tobacco: Never Smokeless Tobacco: Never Alcohol Use Standard Drinks/Week Comments No 0 (1 standard drink = 0.6 oz pur e alcohol) Comments Unknown Sex and Gender Information Value Date Recorded Sex Assigned at Not on file 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 Gender Identity Not on file Sexual Orientation Not on file documented as of this encounter Plan of Treatment Not on file documented as of this encounter Procedures Procedure Name Priority Date/Time Associated Diagnosis Comments DERMATOPATHOLOGY Routine 08/06/2024 12:0 0 AM CDT documented in this encounter Results * DERMATOPATHOLOGY (08/06/2024 12:00 AM CDT) Case Report Dermatopathology Report Case: [id number] Authorizing Provider: Kin Muñoz MD Collected: 08/06/2024 12:00 AM Ordering Location: [facility] - Received: 08/08/2024 12:37 PM DermPath Lab Pathologist: Shiela Pisano MD Specimen: Skin, right upper forehead 5:11 PM CDT DERMATOPATHOLOGY LABORATORY Final Diagnosis Specimen A. SKIN, right upper forehead: BASAL CELL CARCINOMA, NODULAR TYPE (C44.319) 5 5:11 PM CDT DERMATOPATHOLOGY LABORATORY at 1711 CDT Clinical History R/O BCC 5:11 PM CDT DERMATOPATHOLOGY LABORATORY Gross Description Specimen A: Received is one formalin filled container labeled with the patient's name and designated right upper forehead. The specimen consists of a shave biopsy measuring 8x5x1 mm. Jar 0. 5:11 PM CDT DERMATOPATHOLOGY LABORATORY Microscopic Description Specimen A. SKIN, right upper forehead: Within the dermis there are aggregates of basaloid cells with a high nuclear to cytoplasmic ratio and peripheral palisading. 5:11 PM CDT DERMATOPATHOLOGY LABORATORY Disclaimer An external and internal positive and negative controls are appropriate for the histochemical, immunohistochemical and immunofluorescence stain(s) in this case (if any), except where stated explicitly. The performance characteristics of the stain(s) cited in this report were developed and its performance characteristic determined by the Dermatopathology Laboratory at [facility], directed by Dr. Hilario Bey. These tests need not be, and therefore are not, approved by the [place] Food and Drug Administration. The tests are used for clinical purposes. Billing Codes Specimen Charges Stain Charges [id number] 1 5:11 PM CDT DERMATOPATHOLOGY LABORATORY Embedded Images 5:11 PM CDT DERMATOPATHOLOGY LABORATORY Pathology/Cytolog y TISSUE SPECIMEN FROM SKIN / Unknown 08/06/2024 08/08/2024 12:37 PM CDT Kin Muñoz MD LAB - PATHOLOGY/CYTOLOGY ORDERAB LES Final Result DERMATOPATHOLOGY LABORATORY [facility] - Department of Dermatology [address] [phone] documented in this encounter Visit Diagnoses Not on filedocumented in this encounter Care Teams Hedge Fund Accountant Relationship Specialty Start Date End Date Sofia Osorio MD [address] [place] [phone] PCP - General 08/08/12 documented as of this encounter
--- OUTSIDE RECORDS SUMMARY | 2024-10-30 10:38 | XMS_ITS | Clinical Summary ---
Author Organization [facility] Elicia alba Address [address] [place] [id number] Phone Care Team Providers Care Byproducts Operator Name Role Phone Elba Felipe NP Primary Care Provider [phone] Allergies Active Allergy Reactions Criticality Noted Date Comments Shellfish Allergy Nausea Only,Other (s ee comments) High 06/10/2018 Shellfish-Derived Products 0 Medications aspirin 81 MG chewable tablet Chew 81 mg 1 (one) time each day. Active losartan (COZAAR) 25 MG tablet Take 25 mg by mouth 1 (one) time each day. Active montelukast (SINGULAIR) 10 MG tablet Take 10 mg by mouth every night. Active Multiple Vitamin (MULTIVITAMIN) capsule Take 1 capsule by mouth 1 (one) time each day. Active Cholecalciferol (VITAMIN D3) 1000 units capsule Take by mouth. Activ e alendronate (FOSAMAX) 70 MG tablet 9 Active fluticasone (FLONASE) 50 MCG/ACT nasal spray fluticasone propionate 50 mcg/actuation nasal spray,suspension 9 Active atorvastatin (LIPITOR) 10 MG tablet daily Active saccharomyces boulardii (FLORASTOR) 250 MG capsule Take 250 mg by mouth 2 (two) times a day Active oxybutynin XL (DITROPAN-XL) 5 MG 24 hr tablet 2 Active Active Problems Problem Noted Date Diagnosed Date Vitamin D deficiency 08/12/2018 Essential hypertension 06/22/2018 Other and unspecified hyperlipidemia 06/22/2018 Stage 3b chronic kidney disease 04/24/2018 Hyperglycemia 04/24/2018 Resolved Problems Problem Noted Date Diagnosed Date Resolved Date Nonspecific abnormal results of function study of kidney 06/22/2018 04/08/2021 Immunizations Immunization Administration Dates Next Due Fluzone High-Dose 11/19/2019 Influenza Split High Dose Pr eservative Free IM 10/29/2020,11/19/2019,11/19/2019,11/15,11/15/2018,11/07/2016,11/07/2016 ,01/12/2016,01/12/2016 Influenza TIV (IM) 12/18/2014, 5,11/18/2013,11/18,10/18/2012,10/18/2012 Influenza, Injectable, Quadrivalent 12/11/2017,1 Moderna Sars-cov-2 Vaccination 01/24/2021,2020,03/26/2020 Pneumococcal Conjugate 13-Valent 017,11/07/2016,09/05/2010,09/05 Pneumococcal Polysaccharide 02/22/2016, 7 Tdap 11/15/2018,11/15/2018 Zoster 06/22/2010,06/22/2010 Family History Medical History Relation Comments Alzheimer's disease Father Relation Status Comments Father Social History Tobacco Use Types Packs/Day Years Used Date Smoking Tobacco: Never Smokeless Tobacco: Never Alcohol Use Standard Drinks/Week Comments No 0 (1 standard drink = 0.6 oz pur e alcohol) AUDIT-C Answer Date Recorded Frequency of Alcohol Consumption Never 06/22/2018 Average Number of Drinks Not on file 019 Frequency of Binge Drinking Not on file 06/12 Comments Unknown Sex and Gender Information Value Date Recorded Sex Assigned at Not on file Legal Sex Female 11:41 AM MDT Gender Identity Not on file Sexual Orientation Not on file Last Filed Vital Signs Vital Sign Reading Time Taken Comments Blood Pressure 132/70 10/31/2021 10:41 AM CDT Pulse 72 10/31/2021 10:41 AM CDT Temperature 36.3 C (97.4 F) 10/31/2021 10:41 AM CDT Respiratory Rate - - Oxygen Saturation - - Inhaled Oxygen Concentration - - Weight 67.6 kg (149 lb) 10/31/2021 10:41 AM CDT Height 152.4 cm (5') 10/31/2021 10:41 AM CDT Body Mass Index 29.1 10/31/2021 10:41 AM CDT Plan of Treatment Health Maintenance Due Date Last Done Comments COVID-19 Vaccine (2024- 6 season) 2024 01/24/2021, 04/23/2020, 03/26/2020 Influenza Vaccine (#1) 2024 5, 12/18/2014, 11/18/2013, Additional history exists Pneumococcal PPSV23/PCV13 65 + Years / Low and Medium Risk Completed 11/07/2016, 11/07/2016, 02/22/2016, Additional history exists Insurance Care Teams Byproducts Operator Relationship Specialty Start Date End Date Elba Felipe NP [address] [phone] PCP - General Family Medicine 06/24/18
--- OUTSIDE RECORDS SUMMARY | 2024-10-30 10:38 | XMS_ITS | Clinical Summary ---
Author Organization [facility] Address Formerly [facility], [facility] [place] [address] Care Team Providers Care Department Mgr Name Role Phone Unavailable Primary Care Provider Unavailabl e Immunizations Immunization Administration Dates Next Due MODERNA COVID-19 (12+) MRNA, LNP-S, PF, 100 MCG/ 0.5 ML DOSE 04/23/2020,03/26/2020 Social History Tobacco Use Types Packs/Day Years Used Date Smoking Tobacco: Never Assessed Comments Unknown Sex and Gender Information Value Date Recorded Sex Assigned at Not on file Legal Sex Female 4:32 PM CDT Gender Identity Not on file Sexual Orientation Not on file Plan of Treatment Health Maintenance Due Date Last Done Comments DTaP, Tdap and Td Vaccines ( 1 - Tdap) 1954 Zoster Vaccines (2 of 3) 08/17/2010 06/22/2010 RSV Immunization or 60+ Years (1 - 1-dose 75+ series) 2012 Pneumococcal Vaccine: 50+ Years (2 of 2 - PPSV23) 11/06/2017 11/06/2016, 09/05/2010 COVID-19 Vaccine (3 - 2024-2 6 season) 2024 04/23/2020, 03/26/2020 Meningococcal B Vaccine Aged Out No l onger eligible based on patient's age to complete this topic Meningococcal Vaccine Aged Out No román kirsty eligible based on patient's age to complete this topic RSV Immunizations Under 20 Months Aged Out No longer eligible b ased on patient's age to complete this topic
[2024-10-30 10:51] VITALS: BP 164/58; PULSE 62
[2024-10-30 10:52] VITALS: BP 146/70; BP 168/76; PULSE 61; PULSE 70
== END 2024-10-30 11:22 | disposition home or self-care (01) ==
PROVIDERS: Emergency Provider Nurse Practitioner Family; PCP Nurse Practitioner Family
DX: J18.9 Pneumonia, unspecified organism (principal); I12.9 Hypertensive chronic kidney disease with stage 1 through stage 4 chronic kidney disease, or unspecified chronic kidney disease; N18.32 Chronic kidney disease, stage 3b; E78.00 Pure hypercholesterolemia, unspecified; N32.81 Overactive bladder; M81.0 Age-related osteoporosis without current pathological fracture; H26.9 Unspecified cataract; Z79.82 Long term (current) use of aspirin
CPT/HCPCS: 71046; 82948; 99213; G0463